=== PATIENT | female | born 1985 | race Caucasian/White ===

== ENCOUNTER 2021-12-09 17:01 | Emergency (ER) | payer OTHER, MEDICAID ==
[~2021-12-09] VITALS: Ht 167.6 cm; Wt 77.0 kg
[2021-12-09 17:15] VITALS: BP 145/98
[2021-12-09] MEDS ORDERED: KETOROLAC 60MG/2ML VIAL IM ONE (18:30)
[2021-12-09] MEDS ORDERED: IBUP-2029 MT (19:37)
[2021-12-09] MEDS ORDERED: CYCL10TA7 MT (19:37)
== END 2021-12-09 20:17 | disposition home or self-care (01) ==
LOC: ER 17:01
DX: S09.8XXA Other specified injuries of head, initial encounter (principal); S10.83XA Contusion of other specified part of neck, initial encounter; S30.0XXA Contusion of lower back and pelvis, initial encounter; M25.521 Pain in right elbow; M25.562 Pain in left knee; R03.0 Elevated blood-pressure reading, without diagnosis of hypertension; V49.49XA Driver injured in collision with other motor vehicles in traffic accident, initial encounter; Y93.89 Activity, other specified; Y92.488 Other paved roadways as the place of occurrence of the external cause
CPT/HCPCS: 70450; 72125; 73070; 73560; 96372; 99284; J1885